=== PATIENT | female | born 1990 | race African-American/Black ===

== ENCOUNTER 2018-03-19 21:14 | Emergency (ER) | payer MEDICAID | END 2018-03-19 21:38 | disposition home or self-care (01) | LOC: MADERS 21:14 | DX: O99.89 Other specified diseases and conditions complicating pregnancy, childbirth and the puerperium (principal); R19.7 Diarrhea, unspecified; Z3A.22 22 weeks gestation of pregnancy | CPT/HCPCS: 99281 ==

== ENCOUNTER 2018-04-22 10:42 | Outpatient (CLI) | payer MEDICAID ==
[2018-04-22 12:33] LABS: #Basophils 0.1 thou/uL (0.0-0.2); #Lymphocytes 1.3 thou/uL (1.20-3.40); #Monocytes 0.6 thou/uL (0.11-0.59); #Neutrophils 5.3 thou/uL (1.40-6.50); %Eosinophils 0.3 % (0.0-10.0); %Lymphocytes 18.4 % (21.0-51.0); %Monocytes 7.8 % (0.0-10.0); %Neutrophils 72.5 % (42.0-75.0); Hemoglobin 10.2 g/dL (12.0-16.0); Mean Corpuscular HGB CONC 33.7 g/dL (32.0-36.0); Mean Corpuscular Hemoglobin 29.7 pg (27.0-31.0); Mean Corpuscular Volume 88.2 fL (78.0-98.0); Mean Platelet Volume 7.5 fL (7.4-10.4); Platelet Count 233 thou/uL (130-400); RBC Distribution Width 12.7 % (11.5-14.5); Red Blood Cell (RBC) Count 3.43 mill/uL (4.20-5.40); White Blood Cell (WBC) Count 7.3 thou/uL (4.8-10.8)
[2018-04-22 18:08] LABS: HIV (1/2) Antibody/Antigen Non-Reactive (NonReactive); HIV 1/2 INDEX 0.09 S/CO (<1.00)
[2018-04-22 18:09] LABS: Syphilis Antibody Nonreactive (Nonreactive); Syphilis Antibody Index 0.09 S/CO (<1.00 Non-Reactive)
== END 2018-04-22 10:43 | disposition home or self-care (01) ==
LOC: MADLAB 10:42
PROVIDERS: ATTEND Family Medicine
DX: O09.892 Supervision of other high risk pregnancies, second trimester (principal)
CPT/HCPCS: 36415; 82950; 85025; 86780; 86850; 87077; 87086; 87186; 87389

== ENCOUNTER 2018-05-13 20:01 | Emergency (ER) | payer OTHER ==
[2018-05-13] MEDS ORDERED: Ondansetron ODT 4 MG TAB ONE (20:37)
[2018-05-13 20:55] LABS: Bilirubin Negative (Negative); Blood, Urine Trace (Negative); Clarity Cloudy (Clear); Glucose, Urine (Dipstick) Negative (Negative); Leukocyte Large (Negative); Nitrite Positive (Negative); Protein, Urine (Dipstick) Trace mg/dL (Neg-Trace); Specific Gravity, Urine 1.015 (1.005-1.030); pH, Urine 6.5 (5.0-9.0)
[2018-05-13 21:00] LABS: Bacteria/HPF 4+ HPF (None Seen)
== END 2018-05-13 21:52 | disposition home or self-care (01) ==
LOC: MADERS 20:01
DX: O99.613 Diseases of the digestive system complicating pregnancy, third trimester (principal); K52.9 Noninfective gastroenteritis and colitis, unspecified; Z3A.28 28 weeks gestation of pregnancy
CPT/HCPCS: 81003; 81015; 87077; 87086; 87186; 99284; Q0162

== ENCOUNTER 2018-05-30 12:10 | Emergency (ER) | payer OTHER ==
[~2018-05-30 12:10] MED LIST: Lidocaine 1% 20 ML MDV ONE
[2018-05-30 12:47] LABS: Bilirubin Negative (Negative); Blood, Urine Trace (Negative); Clarity Clear (Clear); Glucose, Urine (Dipstick) Negative (Negative); Leukocyte Moderate (Negative); Nitrite Positive (Negative); Protein, Urine (Dipstick) Negative (Neg-Trace); Specific Gravity, Urine 1.015 (1.005-1.030)
[2018-05-30 12:51] LABS: Bacteria/HPF 3+ HPF (None Seen); RBC/HPF 0-3 HPF (0-3); Squamous Epithelial 0-3 HPF (0-3)
[2018-05-30] MEDS ORDERED: cefTRIAXone\\ROCEPHIN 1 GM VIAL ONE (13:52)
== END 2018-05-30 14:30 | disposition home or self-care (01) ==
LOC: MADERS 12:10
DX: O16.3 Unspecified maternal hypertension, third trimester (principal); O23.43 Unspecified infection of urinary tract in pregnancy, third trimester; Z3A.00 Weeks of gestation of pregnancy not specified
CPT/HCPCS: 81003; 81015; 87077; 87086; 87186; 96372; J0696; J2001

== ENCOUNTER 2018-09-18 11:02 | Emergency (ER) | payer OTHER ==
[2018-09-18 11:56] LABS: Bilirubin Negative (Negative); Blood, Urine Negative (Negative); Clarity Clear (Clear); Glucose, Urine (Dipstick) Negative (Negative); Leukocyte Small (Negative); Nitrite Negative (Negative); Protein, Urine (Dipstick) Negative (Neg-Trace)
[2018-09-18 11:57] LABS: Pregnancy Test - Urine (BHCG) POSITIVE (Negative); Pregu Control Background? CLEAR/WHITE (CLR/WHITE); Pregu Control Bar Appear? YES (CONTROL BAR); Specific Gravity 1.015 (1.002-1.036)
[2018-09-18 12:04] LABS: Bacteria/HPF 2+ HPF (None Seen); RBC/HPF 0-3 HPF (0-3)
== END 2018-09-18 13:31 | disposition short-term general hospital (02) ==
LOC: MADERS 11:02
DX: O16.1 Unspecified maternal hypertension, first trimester (principal); Z79.899 Other long term (current) drug therapy
CPT/HCPCS: 36415; 81003; 81015; 81025; 84702; 87077; 87086; 87186; 99284

== ENCOUNTER 2018-10-26 19:35 | Emergency (ER) | payer OTHER ==
[2018-10-26] MEDS ORDERED: Sodium Chloride 0.9% 1,000 ML ONE (20:27)
[2018-10-26 20:45] LABS: #Basophils 0.1 thou/uL (0.0-0.2); #Lymphocytes 1.9 thou/uL (1.20-3.40); #Monocytes 0.5 thou/uL (0.11-0.59); #Neutrophils 2.7 thou/uL (1.40-6.50); %Basophils 1.2 % (0.0-1.0); %Eosinophils 0.7 % (0.0-10.0); %Monocytes 8.9 % (0.0-10.0); %Neutrophils 52.3 % (42.0-75.0); Hemoglobin 11.4 g/dL (12.0-16.0); Mean Corpuscular HGB CONC 31.6 g/dL (32.0-36.0); Mean Corpuscular Hemoglobin 27.1 pg (27.0-31.0); Mean Corpuscular Volume 85.8 fL (78.0-98.0); Mean Platelet Volume 6.1 fL (7.4-10.4); Platelet Count 277 thou/uL (130-400); Red Blood Cell (RBC) Count 4.19 mill/uL (4.20-5.40); White Blood Cell (WBC) Count 5.2 thou/uL (4.8-10.8)
[2018-10-26 20:58] LABS: Anion Gap 14 mmol/L (10-20); BUN (Urea Nitrogen) 10 mg/dL (7.0-18.7); Calc. Creatinine Clearance 0 mL/min (70-130); Calcium 9.4 mg/dL (7.8-10.44); Carbon Dioxide 26 mmol/L (22-29); Chloride 106 mmol/L (98-107); Estimated GFR-MDRD Greater than 90; Glucose 79 mg/dL (70-105); Potassium 3.4 mmol/L (3.5-5.1); Sodium 143 mmol/L (136-145)
== END 2018-10-26 22:29 | disposition short-term general hospital (02) ==
LOC: MADERS 19:35
DX: O20.9 Hemorrhage in early pregnancy, unspecified (principal); Z79.899 Other long term (current) drug therapy; Z3A.10 10 weeks gestation of pregnancy
CPT/HCPCS: 80048; 84702; 85025; 86900; 86901; 90384; 96360; 96361; 96372; J7050